=== PATIENT | female | born 1985 | race Two or more races ===

== ENCOUNTER 2017-02-19 11:37 | Emergency (ER) | payer MEDICAID ==
[~2017-02-19] VITALS: Ht 154.9 cm; Wt 65.8 kg
[~2017-02-19 11:37] MED LIST: ANTI-ITCH28 G1 TP; CLEOCIN40 GM VG; DIFLUCAN150 MG PO; FLUCONAZOLE150 MG ORAL; LIDOCREAM5 GM TP; METRONIDAZOLE500 MG ORAL; NKM; PREDNISONE20 MG ORAL
[2017-02-19 11:40] VITALS: BP 117/74
[2017-02-19] MEDS ORDERED: Bactrim DS (160mg/800mg) tab ORAL ONE (12:15)
--- NOTE | 2017-02-19 12:15 | Emergency Room Report ---
History of Present Illness General Chief Complaint: Skin Rash/Abscess Source: Patient Present Illness HPI Patient presents with painful swelling on labia. Had expressed some pus ( finger tip full). No fevers, dysuria. Pain 9/10, constant and not radiating = burning. No fevers. LNMP normal. No other constitutional symptoms. No NVD, joint pain other rashes. No anxiety or headache. Allergies: Coded Allergies: No Known Allergies (Unverified , 12/02/14) Patient History Past Medical History: see triage record Social History Narrative drove self here Last Menstrual Period: 01/31/17 Now: No : 0 Para: 0 Reviewed Nursing Documentation: PMH: Agreed, PSxH: Agreed Nursing Documentation-PMH Past Medical History: No Stated History Review of Systems All Other Systems: negative except mentioned in HPI Physical Exam Vital Signs Date Time Temp Pulse Resp B/P Pulse Ox O2 Delivery O2 Flow Rate FiO2 02/19/17 11:40 97.9 84 18 117/74 99 Room Air Sp02 EP Interpretation: reviewed, normal General Appearance: well appearing, no apparent distress Head: normocephalic, atraumatic Eyes: bilateral eye PERRL, bilateral eye normal inspection ENT: hearing grossly normal, normal voice Neck: full range of motion, supple Respiratory: no respiratory distress, speaking full sentences Genitourinary: no CVA tenderness, other - L Labia with swelling, induration but no fluctuance or erythema, no drainage at this time Musculoskeletal: digits/nails normal, gait/station normal, normal range of motion Neurologic: alert, normal gait, grossly normal Psychiatric: mood/affect normal Skin: no rash Medical Decision Making Diagnostic Impression: Primary Impression: Bartholin cyst ER Course Patient with Bartholin's cyst with recent drainage. Ddx: cellulitis, abscess. Exam against lesion which can have I and D. (Prior drainage this am). No labs indicated. Indication for treatment with antibiotics and local care with re-evaluation if needed. Patient stable for outpatient observation and treatment. Last Vital Signs Date Time Temp Pulse Resp B/P Pulse Ox O2 Delivery O2 Flow Rate FiO2 02/19/17 13:02 97.9 84 18 117/74 99 Room Air Status: unchanged Disposition: HOME, SELF-CARE Condition: Stable Scripts Ibuprofen* (MOTRIN*) 600 Mg Tablet 600 MG ORAL Q6H Y for For Pain, #16 TAB Prov: Kenn Cormier M.D. 02/19/17 Tramadol Hcl* (ULTRAM*) 50 Mg Tablet 50 MG ORAL Q6H Y for For Pain, #10 TAB 0 Refills Prov: Kenn Cormier M.D. 02/19/17 Cephalexin* (KEFLEX*) 500 Mg Capsule 500 MG ORAL Q6H, #28 CAP 0 Refills Prov: Kenn Cormier M.D. 02/19/17 Trimethoprim/Sulfamethoxazole 160/800* (BACTRIM DS TABLET*) 1 Each Tablet 1 TAB ORAL Q12H, #14 TAB 0 Refills Prov: Kenn Cormier M.D. 02/19/17 Referrals: NON PHYSICIAN (PCP) Kenn Cormier M.D. Feb 19, 2017 12:15
[2017-02-19] MEDS ORDERED: TRAMADOL HCL50 MG ORAL (12:48)
[2017-02-19] MEDS ORDERED: BACTRIM DS TAB1 EAC1 ORAL (12:48)
[2017-02-19] MEDS ORDERED: KEFLEX500 MG ORAL (12:48)
[2017-02-19] MEDS ORDERED: IBUPROFEN600 MG ORAL (12:48)
[2017-02-19 13:02] VITALS: BP 117/74
== END 2017-02-19 13:02 | disposition home or self-care (01) ==
LOC: EMR 11:50
DX: N75.0 Cyst of Bartholin's gland (principal)
CPT/HCPCS: 99284

== ENCOUNTER 2018-10-12 05:09 | Emergency (ER) | payer BC, MEDICAID ==
[~2018-10-12] VITALS: Ht 154.9 cm; Wt 77.1 kg
[~2018-10-12 05:09] MED LIST changes: +BACTRIM DS TAB1 EAC1 ORAL; +IBUPROFEN600 MG ORAL; +KEFLEX500 MG ORAL; +TRAMADOL HCL50 MG ORAL
[2018-10-12] MEDS ORDERED: NKM (05:23)
[2018-10-12 05:35] VITALS: BP 119/76
[2018-10-12] MEDS ORDERED: IBUPROFEN600 MG ORAL (05:37)
--- NOTE | 2018-10-12 05:37 | Emergency Room Report ---
History of Present Illness General Chief Complaint: Flu Like Symptoms Source: Patient Present Illness HPI Is a 33-year-old female with no past medical history. She presents with chief complaint of sore throat. Onset yesterday. No fever chills. Worse with swallowing. Has phlegm. No exudates. Also with congestion and cough. Worse with swallowing. No relief with salt water gargle. Pain is 9 out of 10. Allergies: Coded Allergies: No Known Allergies (Unverified , 12/02/14) Patient History Past Medical History: none, see triage record, old chart reviewed Past Surgical History: none Pertinent Family History: none Social History: Denies: smoking Last Menstrual Period: sep 2018 Now: No Immunizations: other Reviewed Nursing Documentation: PMH: Agreed; PSxH: Agreed Review of Systems Eye: Denies: eye pain, blurred vision ENT: Reports: ear pain, nose congestion, throat pain; Denies: throat swelling Respiratory: Reports: cough; Denies: shortness of breath Cardiovascular: Denies: chest pain, palpitations Gastrointestinal: Denies: abdominal pain, diarrhea, nausea, vomiting Musculoskeletal: Denies: back pain, joint pain Skin: Denies: rash Neurological: Denies: headache, numbness Endocrine: Denies: increased thirst, increased urine Hematologic/Lymphatic: Denies: easy bruising All Other Systems: negative except mentioned in HPI Physical Exam Vital Signs Date Time Temp Pulse Resp B/P (MAP) Pulse Ox O2 Delivery O2 Flow Rate FiO2 10/12/18 05:20 98.4 79 18 119/76 97 Room Air vitals normal Sp02 EP Interpretation: reviewed, normal General Appearance: well appearing, no apparent distress, alert Head: normocephalic, atraumatic Eyes: bilateral eye PERRL, bilateral eye EOMI ENT: hearing grossly normal, normal pharynx, pharyngeal erythema - Mild, other - No trismus Neck: full range of motion, supple, no meningismus Respiratory: chest non-tender, lungs clear, normal breath sounds Cardiovascular #1: regular rate, rhythm, no murmur Gastrointestinal: normal bowel sounds, non tender, no mass, no organomegaly, no bruit, non-distended Musculoskeletal: back normal, gait/station normal, normal range of motion Psychiatric: mood/affect normal Skin: warm/dry Medical Decision Making Diagnostic Impression: Primary Impression: Pharyngitis with viral syndrome ER Course Patient with symptoms consistent with pharyngitis. Symptom clinically suggests viral etiology. No evidence of any exudative tonsillitis, peritonsillar abscess or retropharyngeal abscess. No evidence of any Karri angina. Last Vital Signs Date Time Temp Pulse Resp B/P (MAP) Pulse Ox O2 Delivery O2 Flow Rate FiO2 10/12/18 05:20 98.4 79 18 119/76 97 Room Air Status: unchanged Disposition: HOME, SELF-CARE Condition: Stable Scripts Ibuprofen* (MOTRIN*) 600 Mg Tablet 600 MG ORAL THREE TIMES A DAY, #30 TAB 0 Refills Prov: Pascual Mcneil MD 10/12/18 Referrals: NOT CHOSEN IPA/,REFERRING (PCP) Additional Instructions: Follow-up with your doctor in 7 days. Salt water gargle. Return if worse. Pascual Mcneil MD Oct 12, 2018 05:37
[2018-10-12 05:46] VITALS: BP 119/76
== END 2018-10-12 06:49 | disposition home or self-care (01) ==
LOC: EMR 05:31
DX: J02.8 Acute pharyngitis due to other specified organisms (principal); B97.89 Other viral agents as the cause of diseases classified elsewhere
CPT/HCPCS: 99282; J7512